=== PATIENT | female | born 1990 | race Hispanic/Latino ===

== ENCOUNTER 2017-07-16 19:09 | Emergency (ER) | payer SELFPAY ==
[2017-07-16] MEDS ORDERED: EPINEPHRINE 1 MG/ML AMPULE ONE (20:13)
[2017-07-16] MEDS ORDERED: DEXAMETHASONE SOD PHOSPHATE 10MG/ML 1ML VIAL ONE (20:15)
[2017-07-16] MEDS ORDERED: METHYLPREDNISOLONE SOD SUCC 40MG/ML 1ML ONE (20:15)
[2017-07-16] MEDS ORDERED: HYDROXYZINE HCL 25 MG TABLET ONE (20:16)
== END 2017-07-16 21:15 | disposition home or self-care (01) ==
LOC: EDH 19:09
DX: T78.1XXA Other adverse food reactions, not elsewhere classified, initial encounter (principal); R21 Rash and other nonspecific skin eruption; X58.XXXA Exposure to other specified factors, initial encounter
CPT/HCPCS: 96372 ×3; 99284; J0171; J1100; J2920

== ENCOUNTER 2020-10-08 13:34 | Emergency (ER) | payer SELFPAY ==
[2020-10-08] MEDS ORDERED: OCTYL 2-CYANOACRYLATE 1 EACH TP ONE (15:08)
== END 2020-10-08 15:46 | disposition home or self-care (01) ==
LOC: EDH 13:34
DX: S61.211A Laceration without foreign body of left index finger without damage to nail, initial encounter (principal); X58.XXXA Exposure to other specified factors, initial encounter; Y93.89 Activity, other specified; Y92.89 Other specified places as the place of occurrence of the external cause; Y99.8 Other external cause status
CPT/HCPCS: 12001

== ENCOUNTER 2021-05-05 16:37 | Emergency (ER) | payer SELFPAY ==
[~2021-05-05] VITALS: Ht 160 cm; Wt 95.3 kg
[2021-05-05] MEDS ORDERED: HYDROCODONE/ACETAMINOPHEN 10/325 MG TAB PO ONE (17:00)
[2021-05-05] MEDS ORDERED: TETANUS/DIPHTHERIA TOXOID [ADULT] 0.5 ML VIAL IM ONE ×2 (17:00→17:28)
[2021-05-05 17:25] VITALS: BP 126/78
[2021-05-05] MEDS ORDERED: HYDROCODONE/ACETAMINOPHEN 10/325 MG TAB ONE (17:28)
[2021-05-05] MEDS ORDERED: ACET-2247 PO (17:36)
== END 2021-05-05 17:45 | disposition home or self-care (01) ==
LOC: EDH 16:37
DX: T21.22XA Burn of second degree of abdominal wall, initial encounter (principal); T21.12XA Burn of first degree of abdominal wall, initial encounter; T31.0 Burns involving less than 10% of body surface; X13.1XXA Other contact with steam and other hot vapors, initial encounter; Y93.89 Activity, other specified; Y92.89 Other specified places as the place of occurrence of the external cause; Y99.8 Other external cause status
CPT/HCPCS: 16000; 90471; 90714

== ENCOUNTER 2023-04-02 21:11 | Emergency (ER) | payer OTHER ==
[~2023-04-02] VITALS: Ht 165.1 cm; Wt 117.5 kg
[~2023-04-02 21:11] MED LIST: ACET-2247 PO
[2023-04-02 22:26] LABS: APPEARANCE,URINE CLEAR (CLEAR); BILIRUBIN,URINE NEGATIVE (NEGATIVE); COLOR,URINE LIGHT-YELLOW (YELLOW); GLUCOSE, URINE (UA) NEGATIVE (NEGATIVE); KETONES,URINE NEGATIVE (NEGATIVE); LEUKOCYTE ESTERASE ,URINE NEGATIVE Leu/uL (NEGATIVE); NITRATE,URINE NEGATIVE (NEGATIVE); OCCULT BLOOD,URINE NEGATIVE (NEGATIVE); PH,URINE 6.5 (5.0-8.0); PROTEIN,URINE NEGATIVE (NEGATIVE)
[2023-04-02 22:29] LABS: HCG,QUALITATIVE URINE NEGATIVE (NEGATIVE)
[2023-04-02 22:30] LABS: ADD UA MICROSCOPIC NO
[2023-04-02] MEDS ORDERED: 0.9%NACL 1000ML 1,000 ML IV ONE (23:00)
[2023-04-02] MEDS ORDERED: ONDANSETRON 4MG INJ IVP ONE (23:00)
[2023-04-02] MEDS ORDERED: LIDOCAINE HCL 2% VISCOUS 15 ML UDCUP PO ONE (23:00)
[2023-04-02] MEDS ORDERED: MAG/ALUM/SIMETH 30 ML UDCUP PO ONE (23:00)
[2023-04-02] MEDS ORDERED: MORPHINE 4 MG SYG IVP ONE (23:00)
[2023-04-02 23:04] LABS: BASOPHILS # (AUTO) 0.02 K/uL (0.00-0.20); BASOPHILS % (AUTO) 0.2 % (0.0-5.0); EOSINOPHILS # (AUTO) 0.17 K/uL (0.00-0.70); HEMATOCRIT 36.6 % (36-48); IMMATURE GRANULOCYTE ABSOLUTE 0.07 K/uL (0-1); LYMPHOCYTES # (AUTO) 2.4 K/uL (1.0-4.8); LYMPHOCYTES % (AUTO) 28.6 % (21.0-51.0); MEAN CORPUSCULAR HEMOGLOBIN 24.5 pg (27.0-33.0); MEAN CORPUSCULAR VOLUME 76.6 fL (79-99); MONOCYTES # (AUTO) 0.6 K/uL (0.1-1.0); MONOCYTES % (AUTO) 6.7 % (3.0-13.0); NEUTROPHILS # (AUTO) 5.1 K/uL (1.8-7.7); NEUTROPHILS % (AUTO) 61.7 % (40.0-77.0); PLATELET COUNT (AUTO) 300 K/uL (130-400); RED BLOOD CELL COUNT(AUTO) 4.78 MIL/uL (4.00-5.50); RED CELL DISTRIBUTION WIDTH 14.5 % (11.0-15.5); WHITE BLOOD COUNT (AUTO) 8.3 K/uL (4.8-10.8)
[2023-04-02 23:15] LABS: CREATININE 0.9 mg/dL (0.5-1.5); POTASSIUM 3.6 mmol/L (3.5-5.1)
[2023-04-02 23:19] LABS: ALBUMIN 3.4 g/dL (3.5-5.0); TOTAL PROTEIN, SERUM 7.1 g/dL (6.0-8.3)
[2023-04-02] MEDS ORDERED: FAMO20TA8 PO (23:29)
[2023-04-03 00:09] VITALS: BP 136/76; PULSE 78; RESP 18; O2SAT 98
== END 2023-04-03 00:11 | disposition home or self-care (01) ==
LOC: EDH 21:11
DX: K29.70 Gastritis, unspecified, without bleeding (principal); N83.201 Unspecified ovarian cyst, right side; E66.9 Obesity, unspecified
CPT/HCPCS: 99285; 74176; 96374; 96361; 96375; 80053; 83690; 85025; 81003; 81025; 36415; J7030; J2405; J2270

== ENCOUNTER 2024-10-15 08:50 | Emergency (ER) | payer SELFPAY ==
[~2024-10-15] VITALS: Ht 162.6 cm; Wt 111.1 kg
[~2024-10-15 08:50] MED LIST changes: +FAMO20TA8 PO
[2024-10-15 08:52] VITALS: BP 119/64; RESP 20
[2024-10-15] MEDS: acetaMINOPHEN 500 MG TABLET ONE (09:05)
[2024-10-15] MEDS: acetaMINOPHEN 500 MG TABLET PO ONE (09:05)
[2024-10-15 09:41] LABS: RAPID GROUP A STREP negative (NEGATIVE)
[2024-10-15 09:46] LABS: SARS-CoV-2, RNA, NAAT NEGATIVE SARS CoV-2 (NEGATIVE)
[2024-10-15 09:51] LABS: INFLUENZA TYPE A Negative For Type A (NEGATIVE); INFLUENZA TYPE B Negative For Type B (NEGATIVE)
[2024-10-15 10:15] VITALS: PULSE 85; TEMP 99.5
[2024-10-15 10:16] VITALS: TEMP 99.5
--- NOTE | 2024-10-15 10:17 | ERN ---
General Chief Complaint: Flu Symptoms Stated Complaint: FLULIKE SYMPTOMS Time Seen by MD: 08:54 Source: patient History of Present Illness Initial Comments PATIENT IS A 34-YEAR-OLD FEMALE COMING IN TO BE EVALUATED FOR URI SYMPTOMS. PER PATIENT SHE HAS A COUGH RUNNY NOSE AND MILD COUGH FOR A FEW DAYS. Allergies: Coded Allergies: No Known Drug Allergies (Unverified Allergy, Unknown, 05/05/21) Home Meds Active Scripts Famotidine (Famotidine) 20 Mg Tablet, 20 MG PO BID for 14 Days, #28 TAB Prov:MINDA JAMESON 04/02/23 Acetaminophen (Tylenol) 325 Mg Tablet, 975 MG PO QIDP, #100 TAB Prov:EMMY HEWITT 05/05/21 Past Medical History Past Medical History: No Pertinent History Medical History Other: Obesity Past Surgical History: None Female( History) LMP: Sep 23, 2024 ROS Dictation CONSTITUTIONAL: NO CHILLS, NO FEVER, NO WEAKNESS, NO DIAPHORESIS, NO MALAISE. HEAD/FACE: NO SIGNS OF TRAUMA. EENT: NO EYE PAIN, NO BLURRED VISION, NO TEARING, NO DOUBLE VISION, NO EAR PAIN, NO EAR DISCHARGE, NO NOSE PAIN, NASAL CONGESTION, NO THROAT PAIN, NO THROAT SWELLING, NO MOUTH PAIN. RESPIRATORY: COUGH, NO ORTHOPNEA, NO SOB, NO STRIDOR, NO WHEEZING. CARDIOVASCULAR: NO CHEST PAIN, NO EDEMA, NO PALPITATIONS, NO SYNCOPE. GASTROINTESTINAL/ABDOMINAL: NO ABDOMINAL PAIN, NO CONSTIPATION, NO DIARRHEA, NO NAUSEA, NO VOMITING. GENITOURINARY: NO ABNORMAL DISCHARGE, NO DYSURIA, NO FREQUENT URINATION, NO HEMATURIA. NO COMPLAINTS OF PAIN IN THE GENITALS. MUSCULOSKELETAL: NO BACK PAIN, NO GOUT, NO JOINT PAIN, NO JOINT SWELLING, NO MUSCLE PAIN, NO MUSCLE STIFFNESS, NO NECK PAIN. INTEGUMENTARY: NO CHANGE IN COLOR, NO CHANGE IN HAIR/NAILS, NO DRYNESS, NO LESION, NO LUMPS, NO RASH. NEUROLOGICAL/PSYCH: NO ANXIETY, NOT DEPRESSED, NO EMOTIONAL PROBLEM, NO HEADACHE, NO NUMBNESS, NO PRE-EXISTING DEFICIT, NO HISTORY OF SEIZURES, NO TREMORS, NO WEAKNESS. HEMATOLOGIC/LYMPHATIC: NOT ANEMIC, NO HISTORY OF BLOOD CLOTS, NO APPARENT BLE EDING, NO BRUISING, GLANDS NOT SWOLLEN. ALL SYSTEMS NEGATIVE, EXCEPT NOTED. Physical Exam Physical Exam Dictation VITAL SIGNS: REVIEWED. GENERAL APPEARANCE: ALERT, ORIENTED X3, NO ACUTE DISTRESS, OBESE. HEAD AND FACE: NON-TRAUMATIC. EYES: PERRL, PINK CONJUNCTIVAS, EYELID NO TRAUMA, ANTERIOR CHAMBER CLEAR. EARS: PINNAS INTACT AND NO SIGNS OF TRAUMA OR ERYTHEMA. EAR CANALS CLEAR AND NO DISCHARGE. TMS ERYTHEMA. NOSE: NO DISCHARGE, NO BLEEDING. OROPHARYNX: MOUTH NORMAL, TEETH NO CARIES, TONGUE PINK. PHARYNX ERYTHEMA. TONSILS NO EXUDATES, NO ABSCESSES NOTED. MUCOUS MEMBRANE MOIST. NECK: SUPPLE, NON-TENDER, NO THYROMEGALY, NO MASSES, NO JVD, NO BRUITS. BREAST: DEFERRED. CHEST: NO TENDERNESS, NO CREPITUS, NO PARADOXICAL MOVEMENT, NO RETRACTIONS. LUNGS: CLEAR, WELL-VENTILATED, SYMMETRIC, NO RALES, NO WHEEZING, NO RHONCHI, NO STRIDOR, GOOD BREATH SOUNDS BILATERALLY. HEART: REGULAR RATE, REGULAR RHYTHM, NO MURMUR, NO GALLOPS. VASCULAR: NO PERIPHERAL EDEMA. ABDOMEN: SOFT, POSITIVE BOWEL SOUNDS, NONDISTENDED, NO GUARDING, NONTENDER, NO REBOUND, NO MASSES NO HEPATOMEGALY, NO SPLENOMEGALY, NO ROBERTSON'S SIGN, NO HERNIAS. RECTAL: DEFERRED. GENITAL: DEFERRED. NEUROLOGICAL: NORMAL SPEECH, GROSS MOTOR FUNCTION INTACT, GROSS SENSORY FUNCTION INTACT. MUSCULOSKELETAL: NECK NONTENDER, FULL RANGE OF MOTION, BACK NONTENDER, FULL RANGE OF MOTION. EXTREMITIES: NONTENDER, FULL RANGE OF MOTION. SKIN: COLOR PINK, DRY, NO TURGOR, NO RASH, NO LACERATIONS, NO ABRASIONS, NO CO NTUSIONS. LYMPHATICS: DEFERRED. Results Laboratory and Microbiology Lab and Micro Result Laboratory Tests Test 10/15/24 08:33 Influenza Type A Antigen Negative For Type A Influenza Type B Antigen Negative For Type B SARS-CoV-2, RNA, NAAT NEGATIVE SARS CoV-2 Group A Streptococcus Rapid negative (NEGATIVE) Labs Reviewed?: Yes MDM MDM: DIFFERENTIAL DIAGNOSIS: URI, SINUSITIS COVID, FLU RATIONALE: TESTS CONSIDERED AND ORDERED SECONDARY TO SHARED DECISION MAKING INCLUDE: PREVIOUS OUTSIDE RECORDS REVIEWED: OLD ER VISITS. RISK OF COMPLICATION AND/OR MORBIDITY OR MORTALITY OF PATIENT MANAGEMENT: NONE PATIENT IS A 34-YEAR-OLD FEMALE COMING IN TO BE EVALUATED FOR COUGH AND CONGESTION. LABORATORY WORKUP NEGATIVE FOR ACUTE FINDINGS. ON PHYSICAL EXAM PATIENT DOES HAVE OROPHARYNGEAL ERYTHEMA WITH SOME POSTNASAL DRIP WELL BILATERAL TYMPANIC EDEMA. PATIENT WILL BE DISCHARGED WITH A DIAGNOSIS OF SINUSITIS ANTIBIOTICS WILL BE PROVIDED. I DID ADVISED HER APPROPRIATE FOLLOW UP WITH PCP IN 1-2 DAYS. ED Course Orders Procedure Category Date Status Time Covid Rna Naat LAB 10/15/24 Complete 08:59 Rapid (Group A Strep) LAB 10/15/24 Complete 08:59 Influenza Type A & B, LAB 10/15/24 Complete Rapid 08:59 Acetaminophen 500mg PHA 10/15/24 Complete Tab (Tylenol 500mg T 09:30 Acetaminophen 500mg PHA 10/15/24 Complete Tab (Tylenol 500mg T 09:04 Current Medications Medications (Trade) Dose Ordered Sig/Nimesh Route PRN Reason Start Time Stop Time Status Last Admin Dose Admin Acetaminophen (TYLenol 500MG TAB) 500 mg STK-MED ONCE .ROUTE 10/15/24 09:04 10/15/24 09:04 DC Acetaminophen (TYLenol 500MG TAB) 1,000 mg ONCE ONCE PO 10/15/24 09:30 10/15/24 09:31 DC 10/15/24 09:05 Vital Signs Date Time Temp Pulse Resp B/P (MAP) Pulse Ox O2 Delivery O2 Flow Rate FiO2 10/15/24 10:15 99.5 85 Room Air* 0 21 10/15/24 09:05 102.4 10/15/24 09:05 102.4 10/15/24 08:52 102.4 96 20 119/64 98 0 DX & DISP Disposition: Discharge Departure Impression: Primary Impression: Sinusitis Condition: Stable Scripts Loratadine (Loratadine) 10 Mg Tablet 1 TAB PO DAILY for allergy symptoms for 30 Days, #30 TAB 0 Refills Prov: TOM MCKAY MD 10/15/24 Fluticasone Propionate (Flonase Nasal [place]) 50 Mcg/Actuation [place] 2 SPRAY NS DAILY, #16 GM 0 Refills Prov: TOM MCKAY MD 10/15/24 Amoxicillin/Potassium Clav (Amox Tr-K Clv 875-125 mg Tab) 875 Mg-125 Mg Tablet 1 TAB PO BID for 10 Days, #20 TAB 0 Refills Prov: TOM MCKAY MD 10/15/24 Additional Instructions: FOLLOW-UP WITH PRIMARY CARE PROVIDER IN 1 TO 2 DAYS. TAKE MEDICATIONS DIRECTED HERE IN THE EMERGENCY ROOM. OKAY TO CONTINUE HOME MEDICATIONS UNLESS OTHERWISE DISCUSSED DURING YOUR VISIT IN THE EMERGENCY ROOM TODAY. RETURN TO YOUR NEAREST EMERGENCY ROOM IF SYMPTOMS WORSEN OR IF THERE IS NO IMPROVEMENT. CALL 911 IF YOU NEED IMMEDIATE ASSISTANCE. TAKE TYLENOL [id number] NEEDED AND IF NO CONTRAINDICATIONS ARE PRESENT. INCREASE ORAL HYDRATION. A [place]OU [place] CULTURE OR URINE CULTURE WAS ORDERED HERE IN THE EMERGENCY ROOM DEPARTMENT PLEASE FOLLOW-UP WITH PRIMARY CARE PROVIDER AND ADVISE THEM TO GET REPEAT PORTS FROM OUR FACILITY. IF YOU HAD ANY LINDSAY WRAP/SPLINTS THAT WERE APPLIED HERE, PLEASE DO NOT REMOVE THEM UNTIL YOU SEE YOUR PRIMARY CARE OR SPECIALTY. REFERRALS: Referrals: SELF,REFERRAL (PCP) ELGIN SANCHEZ MD Time of Disposition: 10:27 TOM MCKAY MD October 15, 2024 10:17
[2024-10-15] MEDS ORDERED: AMOX1TAB16 PO (10:28)
[2024-10-15] MEDS ORDERED: LORA10TA7 PO (10:28)
[2024-10-15] MEDS ORDERED: FLUT16H NS (10:28)
[2024-10-15] MEDS: cefTRIAXone 1G VIAL IM ONE (10:51)
== END 2024-10-15 10:53 | disposition home or self-care (01) ==
LOC: EDH 08:50
DX: J32.9 Chronic sinusitis, unspecified (principal); E66.9 Obesity, unspecified; Z20.822 Contact with and (suspected) exposure to COVID-19; Z68.41 Body mass index [BMI] 40.0-44.9, adult
CPT/HCPCS: 99283; 87635; 87880; 87804 ×2; 96372; J0696

== ENCOUNTER 2024-11-08 13:25 | Emergency (ER) | payer SELFPAY ==
[~2024-11-08] VITALS: Ht 162.6 cm; Wt 111.1 kg
[~2024-11-08 13:25] MED LIST changes: +AMOX1TAB16 PO; +FLUT16H NS; +LORA10TA7 PO
[2024-11-08] MEDS ORDERED: IBUP-2077 PO (13:44)
[2024-11-08] MEDS ORDERED: CLIN-141 PO (13:44)
[2024-11-08] MEDS: ibuPROFEN 800 MG TAB PO ONE (13:44)
--- NOTE | 2024-11-08 13:45 | ERN ---
ED Note History of Present Illness Stated Complaint: TOOTH PAIN Chief Complaint: Tooth Ache/Pain Time Seen by MD: 13:28 Dictation: PATIENT IS A 34-YEAR-OLD FEMALE THAT HAS A TOOTH FRACTURE WITH GINGIVAL ERYTHEMA TO TOOTH 6. SHE HAS HAD SINCE IT FELL OUT A LONG TIME AGO. NO FEVER NO CHILLS NO HISTORY OF DIABETES. SHE STATES SHE CALLED HER DENTIST TODAY AND HAS A AN APPOINTMENT ON SUNDAY. HE HAS NOT TAKEN ANYTHING PRIOR TO ARRIVAL FOR PAIN. Allergies: Coded Allergies: No Known Drug Allergies (Unverified Allergy, Unknown, 05/05/21) Home Meds Active Scripts Loratadine (Loratadine) 10 Mg Tablet, 1 TAB PO DAILY for allergy symptoms for 30 Days, #30 TAB 0 Refills Prov:TOM MCKAY MD 10/15/24 Fluticasone Propionate (Flonase Nasal [place]) 50 Mcg/Actuation [place], 2 SPRAY NS DAILY, #16 GM 0 Refills Prov:TOM MCKAY MD 10/15/24 Amoxicillin/Potassium Clav (Amox Tr-K Clv 875-125 mg Tab) 875 Mg-125 Mg Tablet, 1 TAB PO BID for 10 Days, #20 TAB 0 Refills Prov:TOM MCKAY MD 10/15/24 Famotidine (Famotidine) 20 Mg Tablet, 20 MG PO BID for 14 Days, #28 TAB Prov:MINDA JAMESON 04/02/23 Acetaminophen (Tylenol) 325 Mg Tablet, 975 MG PO QIDP, #100 TAB Prov:EMMY HEWITT 05/05/21 Past Medical History Past Medical History: Other Additional Past Medical Hx: PREDIABETIC Surgical History: None History: Not Applicable RN Note Reviewed/Agreed w/PFSH: Yes Review of System Dictation CONSTITUTIONAL: NEGATIVE EXCEPT FOR HPI HEAD/FACE: NEGATIVE EXCEPT FOR HPI EENT: NEGATIVE EXCEPT FOR HPI DENTAL PAIN WITH TO FRACTURE RESPIRATORY: NEGATIVE EXCEPT FOR HPI GASTROINTESTINAL/ABDOMINAL: NEGATIVE EXCEPT FOR HPI GENITOURINARY: NEGATIVE EXCEPT FOR HPI MUSCULOSKELETAL: NEGATIVE EXCEPT FOR HPI INTEGUMENTARY: NEGATIVE EXCEPT FOR HPI NEUROLOGICAL/PSYCH: NEGATIVE EXCEPT FOR HPI HEMATOLOGIC/LYMPHATIC: NEGATIVE EXCEPT FOR HPI ALL SYSTEMS NEGATIVE, EXCEPT NOTED ABOVE. 13 POINT REVIEW OF SYSTEMS ASSESSED AND ALL NEGATIVE EXCEPT FOR ABOVE. Initial Vital Sign VS Vital Signs Date Time Temp Pulse Resp B/P (MAP) Pulse Ox O2 Delivery O2 Flow Rate FiO2 11/08/24 13:27 97.9 87 16 133/79 99 Room Air 0 Physical Exam Dictation VITAL SIGNS REVIEWED GENERAL APPEARANCE: ALERT, ORIENTED X 3, MILD ACUTE DISTRESS, WELL DEVELOPED, NOURISHED. HEAD AND FACE: NON-TRAUMATIC. EYES: PERRL, PINK CONJUNCTIVAS, EYELID NO TRAUMA, ANTERIOR CHAMBER WITH ARCUS SENILIS. EARS: PINNAS INTACT AND NO SIGNS OF TRAUMA OR ERYTHEMA EAR CANALS CLEAR AND NO DISCHARGE TM NO ERYTHEMA NOSE: NO DISCHARGE, NO BLEEDING. OROPHARYNX: TOOTH 6. IS FRACTURE TO THE ROOT, MILD GINGIVAL ERYTHEMA TENDERNESS. PHARYNX CLEAR,NO ERYTHEMA, TONSILS NO EXUDATES, NO ABSCESSES NOTED, MUCOUS MEMBRANE MOIST NECK: SUPPLE, NON-TENDER, NO THYROMEGALY, NO MASSES, NO JVD, NO BRUITS BREAST:DEFERRED CHEST:NO TENDERNESS, NO CREPITUS, NO PARADOXICAL MOVEMENT, NO RETRACTIONS LUNGS:CLEAR, WELL-VENTILATED, SYMMETRIC, NO RALES, NO WHEEZING, NO RHONCHI, NO STRIDOR, GOOD BREATH SOUNDS BILATERALLY HEART: REGULAR RATE, REGULAR RHYTHM, NO MURMUR, NO GALLOPS VASCULAR: NO PERIPHERAL EDEMA, ABDOMEN: SOFT, POSITIVE BOWEL SOUNDS, NONDISTENDED, NO GUARDING, NONTENDER, NO REBOUND, NO MASSES NO HEPATOMEGALY, NO SPLENOMEGALY, NO ROBERTSON'S SIGN, NO HERNIAS. RECTAL: DEFERRED GENITAL: DEFERRED NEUROLOGICAL: NORMAL SPEECH, MOTOR FUNCTION INTACT, SENSORY FUNCTION INTACT MUSCULOSKELETAL: NECK NONTENDER, FULL RANGE OF MOTION, BACK NONTENDER, FULL RANGE OF MOTION, EXTREMITIES: NONTENDER, FULL RANGE OF MOTION SKIN: COLOR PINK, DRY, NO TURGOR, NO RASH, NO LACERATIONS, NO ABRASIONS, NO CONTUSIONS. LYMPHATIC: DEFERRED Results (Laboratory/Radiology) Labs Reviewed?: Yes ED Course ED Course Orders Procedure Category Date Status Time Ibuprofen 800 Mg Tab PHA 11/08/24 Verified (Motrin) 14:00 Vital Signs Date Time Temp Pulse Resp B/P (MAP) Pulse Ox O2 Delivery O2 Flow Rate FiO2 11/08/24 13:27 97.9 87 16 133/79 99 Room Air 0 1340/PATIENT AWARE NO LABS OR IMAGING INDICATED WE WILL START HER ON CLINDAMYCIN IBUPROFEN TOLD KEEP HER APPOINTMENT WITH HER DENTIST ON SUNDAY WITHOUT FAIL. Medical Decision Making MDM MEDICAL DISCHARGE MAKING BASED ON EMPIRIC TREATMENT FOR DENTALGIA AND DENTAL FRACTURE WITH POSSIBLE INFECTION. PATIENT GIVEN IBUPROFEN FOR PAIN DISCHARGED HOME WITH CLINDAMYCIN AND TOLD TO KEEP HER APPOINTMENT WITH HER DENTIST ON SUNDAY DX & DISP Disposition: Discharge Departure Impression: Primary Impression: Fracture, tooth Additional Impression: Dental caries extending into pulp Condition: Stable Scripts Ibuprofen (Ibuprofen 800 mg Tab) 800 Mg Tab 800 MG PO Q8H PRN for fever or pain, #30 TAB 0 Refills Prov: DELPHINE HERRERA NP 11/08/24 Clindamycin HCl (Clindamycin HCl) 300 Mg Capsule 1 CAP PO QID for 10 Days, #40 CAP 0 Refills Prov: DELPHINE HERRERA NP 11/08/24 Additional Instructions: FOLLOW-UP WITH PRIMARY CARE PROVIDER IN 1 TO 2 DAYS. TAKE MEDICATIONS DIRECTED HERE IN THE EMERGENCY ROOM. OKAY TO CONTINUE HOME MEDICATIONS UNLESS OTHERWISE DISCUSSED DURING YOUR VISIT IN THE EMERGENCY ROOM TODAY. RETURN TO YOUR NEAREST EMERGENCY ROOM IF SYMPTOMS WORSEN OR IF THERE IS NO IMPROVEMENT. CALL 911 IF YOU NEED IMMEDIATE ASSISTANCE. TAKE TYLENOL OR MOTRIN OVE [id number] NEEDED AND IF NO CONTRAINDICATIONS ARE PRESENT. INCREASE ORAL HYDRATION. A WOUND CULTURE OR URINE CULTURE WAS ORDERED HERE IN THE EMERGENCY ROOM DEPARTMENT PLEASE FOLLOW-UP WITH PRIMARY CARE PROVIDER AND ADVISE THEM TO GET REPEAT PORTS FROM OUR FACILITY. IF YOU HAD ANY LINDSAY WRAP/SPLINTS THAT WERE APPLIED HERE, PLEASE DO NOT REMOVE THEM UNTIL YOU SEE YOUR PRIMARY CARE OR SPECIALTY. TAKE CLINDAMYCIN DIRECTED UNTIL GONE, START 1ST DOSE WITH TWO CAPSULES AND THEN TAKE EVERY 6 HOURS DIRECTED CARRIED KEEP YOUR APPOINTMENT WITH YOUR DENTIST ON SUNDAY WITHOUT FAIL FOR FOLLOW UP AND MANAGE Referrals: SELF,REFERRAL (PCP) Time of Disposition: 13:43 I have reviewed the case, and I agree with, Diagnosis and Plan DELPHINE HERRERA NP November 08, 2024 13:45
[2024-11-08 13:49] VITALS: BP 135/75; PULSE 82; RESP 16; TEMP 98.1; O2SAT 98
--- NOTE | 2024-11-08 14:05 | NUR ---
UNABLE TO DEPART DUE TO REGISTRATION PROCESS
== END 2024-11-08 13:54 | disposition home or self-care (01) ==
LOC: EDH 13:25
DX: K03.81 Cracked tooth (principal); K02.9 Dental caries, unspecified; Z79.899 Other long term (current) drug therapy
CPT/HCPCS: 99283